=== PATIENT | female | born 1995 | race Caucasian/White ===

== ENCOUNTER → 2017-11-15 09:31 | Outpatient (CLI) | payer MEDICAID, SELFPAY ==
[2017-11-15 10:46] LABS: Hematocrit 42.8 % (37-47); Hemoglobin 14.5 g/dl (12.0-15.0); Mean Corp Hgb Conc 33.9 g/gl (32-36); Mean Corpuscular Hgb 30.1 pg (27.0-32.0); Mean Corpuscular Volume 88.8 fL (81-99); Mean Platelet Vol. 9.9 fl (6.2-12.0); Platelet Count 306 K/mm3 (150-450); RBC Distribution Width CV 13.6 % (11.6-14.6); RBC Distribution Width SD 43.8 fl (35.1-43.9); Red Blood Count 4.82 M/mm3 (4.2-5.4); White Blood Count 8.1 K/mm3 (4.4-11.0)
[2017-11-15 10:47] LABS: Scan Indicated on CBC? Y/N NO
[2017-11-15 11:22] LABS: hCG Titer Quant., Serum 69 mIU/mL (<9 non-preg)
[2017-11-16 14:38] LABS: ANTINUCLEAR ANTIBODIES DIRECT Negative (Negative)
== END ==
PROVIDERS: Visit Provider Obstetrics & Gynecology
DX: O20.0 Threatened abortion (principal); N96 Recurrent pregnancy loss; Z3A.00 Weeks of gestation of pregnancy not specified
CPT/HCPCS: 36415; 81241; 84702; 85027; 86038

== ENCOUNTER → 2018-02-02 15:21 | Outpatient (CLI) | payer MEDICAID, SELFPAY ==
[2018-02-02 17:50] LABS: Chlamydia Trachomatis by PCR Negative (Negative); Neisserai gonorrhoeae by PCR Negative (Negative); Probe Check PASS; Sample Adequacy Control PASS; Specimen Processing Control PASS
[2018-02-08 13:32] LABS: HPV Reflexed? NOT INDICATED
== END ==
PROVIDERS: Visit Provider Obstetrics & Gynecology
DX: Z32.01 Encounter for pregnancy test, result positive (principal); Z12.4 Encounter for screening for malignant neoplasm of cervix; Z11.3 Encounter for screening for infections with a predominantly sexual mode of transmission
CPT/HCPCS: 87491; 87591; 88175; G0145

== ENCOUNTER → 2018-02-16 15:36 | Outpatient (CLI) | payer MEDICAID, SELFPAY ==
[2018-02-16 18:00] LABS: Absolute Lymphocyte Count 1.72 X10^3/ul (0.83-4.51); Absolute Neutrophil Count 5.7 X10^3/uL (2.0-7.7); Basophil# 0.02 X10^3/uL; Basophil% 0.2 % (0-1); Eosinophil# 0.06 X10^3/uL; Eosinophils% 0.7 % (0-5); Hematocrit 41.3 % (37-47); Hemoglobin 13.7 g/dl (12.0-15.0); Lymphocyte # 1.72 X10^3/ul (4.0); Lymphocyte % 20.4 % (19-41); Mean Corp Hgb Conc 33.2 g/gl (32-36); Mean Corpuscular Hgb 29.4 pg (27.0-32.0); Mean Corpuscular Volume 88.6 fL (81-99); Mean Platelet Vol. 9.9 fl (6.2-12.0); Monocyte# 0.92 X10^3/uL; Monocyte% 10.9 % (0-10); Neutrophil # 5.69 X10^3/uL (2.7-7.7); Neutrophil % 67.4 % (47-70); Platelet Count 316 K/mm3 (150-450); RBC Distribution Width CV 13.2 % (11.6-14.6); RBC Distribution Width SD 42.3 fl (35.1-43.9); Red Blood Count 4.66 M/mm3 (4.2-5.4); White Blood Count 8.4 K/mm3 (4.4-11.0)
[2018-02-16 18:05] LABS: Color, Urine Straw (Yellow); Glucose, Dipstick Normal (Normal); Ketone-Dipstick Negative (Negative); Leukocyte Esterase-Dipstick Negative /ul (Negative); Nitrite-Dipstick Negative (Negative); Occult Blood-Urine Negative /ul (Negative); Protein-Dipstick Negative (Negative); Urine Bilirubin Dipstick Negative (Negative); Urine Clarity Clear (Clear); Urine Urobilinogen Normal (Normal)
[2018-02-16 18:18] LABS: Thyroid Stim Hormone (TSH) 0.64 uIU/mL (0.358-3.74)
[2018-02-16 18:21] LABS: Amphetamine Urine VISTA NEGATIVE (<1000 ng/mL); Barbiturate Urine VISTA NEGATIVE (< 200 ng/mL); Benzodiazepine Urine VISTA NEGATIVE (< 200 ng/mL); Cocaine Urine VISTA NEGATIVE (< 300 ng/mL); Ecstacy Urine VISTA NEGATIVE (< 500 ng/mL); Methadone Urine VISTA NEGATIVE (< 300 ng/mL); PCP Urine VISTA NEGATIVE (< 25 ng/mL); THC Urine VISTA NEGATIVE (< 50 ng/mL); Vista UDS pH Range 6
[2018-02-16 18:30] LABS: COTININE Drug Screen Positive (<200 ng/mL)
[2018-02-16 18:33] LABS: POSITIVE COUNT NO; POSITIVE DIFFERENTIAL NO; POSITIVE MORPHOLOGY NO
[2018-02-16 18:51] LABS: HIV - WCH Non-Reactive (Nonreactive); Rubella IgG 29.4 IU/mL
[2018-02-18 03:32] LABS: Prenatal RPR NONREACTIVE (NONREACTIVE)
[2018-02-19 20:15] LABS: HEPATITIS B SURFACE AG Negative (Negative); Hep C Antibodies <0.1 s/co ratio (0.0-0.9); V-Zoster IgG (Immunity) 446 index (Immune >165)
== END ==
PROVIDERS: Visit Provider Obstetrics & Gynecology
DX: Z34.81 Encounter for supervision of other normal pregnancy, first trimester (principal)
CPT/HCPCS: 36415; 80307; 81002; 84443; 85025; 86703; 86762; 86787; 86803; 87340

== ENCOUNTER → 2018-07-05 | Outpatient (CLI) | payer MEDICAID, SELFPAY ==
[2018-07-05 15:51] LABS: Glucose Challenge Gest 1H 50g 189 mg/dL (70-140)
[2018-07-05 15:55] LABS: Hematocrit 33.6 % (37-47); Hemoglobin 11.2 g/dl (12.0-15.0); Mean Corp Hgb Conc 33.3 g/gl (32-36); Mean Corpuscular Hgb 29.6 pg (27.0-32.0); Mean Corpuscular Volume 88.7 fL (81-99); Mean Platelet Vol. 9.7 fl (6.2-12.0); Platelet Count 282 K/mm3 (150-450); RBC Distribution Width CV 13.1 % (11.6-14.6); RBC Distribution Width SD 42.5 fl (35.1-43.9); Red Blood Count 3.79 M/mm3 (4.2-5.4); White Blood Count 9.8 K/mm3 (4.4-11.0)
[2018-07-05 15:57] LABS: Scan Indicated on CBC? Y/N NO
== END | disposition home or self-care (01) ==
LOC: WOBLAB 14:27
PROVIDERS: Visit Provider Obstetrics & Gynecology
DX: Z34.83 Encounter for supervision of other normal pregnancy, third trimester (principal)
CPT/HCPCS: 36415; 82950; 85027; 86850

== ENCOUNTER → 2018-09-02 | Outpatient (CLI) | payer MEDICAID, SELFPAY | END | disposition home or self-care (01) | LOC: LABSPEC 16:38 | PROVIDERS: Visit Provider Obstetrics & Gynecology | DX: Z36.85 Encounter for antenatal screening for Streptococcus B (principal) | CPT/HCPCS: 87081 ==

== ENCOUNTER 2018-09-23 19:10 | Inpatient (IN) | payer MEDICAID, SELFPAY ==
[2018-09-23] MEDS: Lactated Ringers 1,000 ML 50 ML IV (19:40)
[2018-09-23 19:55] LABS: Absolute Lymphocyte Count 1.22 X10^3/uL (0.83-4.51); Absolute Neutrophil Count 5.3 X10^3/uL (2.0-7.7); Basophil# 0.03 X10^3/uL; Basophil% 0.4 % (0-1); Eosinophil# 0.05 X10^3/uL; Eosinophils% 0.7 % (0-5); Hematocrit 35.9 % (37-47); Hemoglobin 11.8 g/dL (12.0-15.0); Lymphocyte # 1.22 X10^3/ul (4.0); Mean Corp Hgb Conc 32.9 g/dL (32-36); Mean Corpuscular Hgb 29.4 pg (27.0-32.0); Mean Corpuscular Volume 89.5 fL (81-99); Mean Platelet Vol. 9.8 fl (6.2-12.0); Monocyte# 0.97 X10^3/uL; Monocyte% 12.7 % (0-10); NRBC Flagged by Analyzer 0 % (0-5); Neutrophil # 5.25 X10^3/uL (2.7-7.7); Neutrophil % 68.8 % (47-70); Platelet Count 247 K/mm3 (150-450); RBC Distribution Width CV 15.1 % (11.6-14.6); RBC Distribution Width SD 49.6 fl (35.1-43.9); Red Blood Count 4.01 M/mm3 (4.2-5.4); White Blood Count 7.6 K/mm3 (4.4-11.0)
[2018-09-23 20:09] VITALS: BMI 31.4
[2018-09-23 20:11] LABS: Bedside Glucose 124 mg/dL (70-110)
[2018-09-23 21:01] LABS: Bedside Glucose 119 mg/dL (70-110)
--- NOTE | 2018-09-23 21:01 | PCM.HP.OB ---
- Problem List (1) 39 weeks gestation of Status: Acute (2) Gestational diabetes mellitus Status: Acute Qualifiers: Gestational diabetes mellitus control: oral hypoglycemic-controlled Trimester: third trimester Qualified Code(s): O24.415 - Gestational diabetes mellitus in , controlled by oral hypoglycemic drugs History Date of Admission: 09/23/18 Final GUILLERMINA: 09/25/18 Final GUILLERMINA Source: US <20 weeks Gestational age: 39 Weeks and 6 Days History of this : This is a 23 year-old, G [6], P [1], at 39 5/7 weeks gestational age with history of gestational diabetes presenting for scheduled induction of labor. Medical History: Medical History (Last Updated 09/23/18 @ 21:05 by Alva Payne MD) Anxiety F41.9 Depression F32.9 Surgical History: Surgical History (Last Updated 09/23/18 @ 21:06 by Alva Payne MD) History of carpal tunnel release Z98.890 left Allergies No Known Allergies Allergy (Verified 09/23/18 20:10) Home Medications: Home Medications 47/Iron/Folate 1/Dha [Pnv-Dha Softgel] 1 tab PO DAILY 12/11/14 glyBURIDE [Micronase] 2.5 mg PO QHS 12/11/14 Smoking Status: Current every day smoker Alcohol: None Number of Fetus(es): 1 NST - FHR Rate Baby A Baseline: 135 Variability:: Moderate Accelerations:: 15 x 15 Decelerations:: None NST Reactive:: Yes FHR Category:: Category I Uterine Activity:: 02/17 History Past Pregnancies: Past Pregnancies Delivery Date Name GA/Weeks Outcome Route Weight Gender Labor Length Anesthesia Delivery Location Provider FOB Labs: Mom's Problem List Problem Status Onset Code 39 weeks gestation of Acute Z3A.39 Gestational diabetes mellitus Acute O24.419 Mom's Labs & Results 09/23/18 09/23/18 09/23/18 19:40 19:40 19:54 WBC 7.6 RBC 4.01 L Hgb 11.8 L Hct 35.9 L MCV 89.5 MCH 29.4 MCHC 32.9 RDW Std Deviation 49.6 H RDW Coeff of Mitchel 15.1 H Plt Count 247 MPV 9.8 Immature Gran % (Auto) 1.400 H Neut % (Auto) 68.8 Lymph % (Auto) 16.0 L [place] % (Auto) 12.7 H Eos % (Auto) 0.7 Baso % (Auto) 0.4 Absolute Neuts (auto) 5.3 Absolute Lymphs (auto) 1.22 Nucleated RBC % 0 POC Glucose 124 H Blood Type O NEGATIVE Antibody Screen NEGATIVE 09/23/18 20:54 WBC RBC Hgb Hct MCV MCH MCHC RDW Std Deviation RDW Coeff of Mitchel Plt Count MPV Immature Gran % (Auto) Neut % (Auto) Lymph % (Auto) [place] % (Auto) Eos % (Auto) Baso % (Auto) Absolute Neuts (auto) Absolute Lymphs (auto) Nucleated RBC % POC Glucose 119 H Blood Type Antibody Screen Course Did the patient receive Yes care? Labs Blood Type: O RH: NEGATIVE RPR/VDRL/Syphilis Nonreactive Rubella status Immune HbSAg Negative Date Done: 02/16/18 Chlamydia Negative Gonorrhea Negative HIV/AIDS Non-Reactive Group B Strep: Negative Current Obstetrical History Gestational Diabetes Yes: on glyburide Incompetent Cervix No Infertility No IUGR No Macrosomia No Hypertension/Pre-eclampsia No Placenta Previa/Abruption No PTL/PROM No Uterine anomaly No Oligohydramnios No Polyhydramnios No Multiple gestation No Past Medical History Asthma No Diabetes No Hypertension No Heart disease No Mitral valve prolapse No Neurologic/Seizure disorder/ No Migraines Kidney disease No Liver disease No Varicosities No Clotting disorders/Hx of DVT No Thyroid Dysfunction No Other medical diseases No Psychiatric disorders Yes: depression and anxiety Major trauma No Abnormal PAP smear Yes: treated for trich on 09/13/2018 took full treatment Sleep apnea No Mammogram in the last 2 years No Enter DETAILS of medical did take prometrium early in the d/t history frequent miscarriages Medications Taken During Dose/Freq.: [glyburide] 2.5mg at hs Last Date/Time of Medication 09/22/2018 @ 2200 Taken: [glyburide] Reason for taking medication [ gdm glyburide] Social History Marital Status: SINGLE Alleged father darrell [place] Hx Smoking Yes Smoking Status Current every day smoker Expected Delivery Method: Spontaneous Vaginal Review of Systems Gynecological: Reports: - - occasional contractions, + FM, no leaking of fluid or vaginal bleeding Physical Exam Vitals: AVSS General: Alert, Oriented x3, Cooperative, No apparent distress HEENT: Atraumatic, Normocephalic Cardiovascular: Regular Rhythm Lungs: Normal air movement Abdomen: Soft, Non Tender, Non-Distended, Gravid Extremities:: No edema Neurological: Neuro grossly intact TRANSFORMER TESTER: Normal external genitalia Estimated gestational size: Appropriate for gestational size Presentation: Cephalic Cervix Dilation (cm): 1.5 Station: -3 Effacement (%): 50 Assessment/Plan All Active Problems (Last Updated 09/23/18 @ 21:05 by Alva Payne MD) Physical exam, pre-employment (Acute) 39 weeks gestation of (Acute) Gestational diabetes mellitus (Acute) This is a 23 year-old, G [6], P [1], at 39 5/7 weeks gestational age. -GDMA2, will continue glyburide. FS glucose 124 and 119. Will monitor per protocol. -Misoprostol for cervical ripening -Consents reviewed and patient given opportunity to ask questions. Questions answered to her satisfaction.
[2018-09-23] MEDS: 0.9% Saline Lock 10 ML Syringe IV ×2 (21:32→23:42)
[2018-09-23] MEDS: glyBURIDE 2.5 MG Tablet PO (21:38)
[2018-09-23 22:05] LABS: Bedside Glucose 107 mg/dL (70-110)
[2018-09-23 23:11] LABS: Bedside Glucose 98 mg/dL (70-110)
[2018-09-24] MEDS: Acetaminophen 325 MG Tablet PO ×2 (03:13→08:49)
[2018-09-24 03:16] LABS: Bedside Glucose 82 mg/dL (70-110)
[2018-09-24 07:21] LABS: Bedside Glucose 79 mg/dL (70-110)
--- NOTE | 2018-09-24 08:00 | PCM.PN.BLA ---
Progress Note LABOR PROGRESS NOTE No complaints. No issues overnight. Feels contractions more often. AVSS GEN - NAD, AAO x 3 SVE deferred, recent exam per RN T Dennis 2.5/75/-3 TOCO 1-3/10 min FHR 130, moderate variability, + accelerations, no decelerations am FS 79 A/P: 23yo admitted at 39 wga for IOL, GDMA2 -FS controlled this am -Plan for pitocin later this morning -Pain management per patient request
[2018-09-24 10:06] LABS: Bedside Glucose 130 mg/dL (70-110)
[2018-09-24] MEDS: Oxytocin 30 units/NS 500 ml 30 UNITS/500 ML IV.SOLN IV (10:57)
[2018-09-24] MEDS: Lactated Ringers 1,000 ML 50 ML IV ×2 (11:05→14:53)
[2018-09-24] MEDS: fentaNYL-bupivacaine (epidural) 100 ML BAG EPIDURAL ×2 (11:32→16:08)
--- NOTE | 2018-09-24 12:01 | PCM.PN.BLA ---
Progress Note LABOR PROGRESS NOTE Comfortable with epidural. AVSS GEN - NAD, AAO x 3 FHR 140, moderate variability, + variable decelerations TOCO 3/10 min SVE 5.5/75/-2 A/P: 23yo @ 39 6/7wga in active labor, Cat II FHR -GDMA2 - FS q1h now -Patient declines amniotomy -Will continue pitocin as tolerated by mother and fetus
[2018-09-24 13:56] LABS: Bedside Glucose 85 mg/dL (70-110)
[2018-09-24 15:06] LABS: Bedside Glucose 90 mg/dL (70-110)
[2018-09-24 16:06] LABS: Bedside Glucose 78 mg/dL (70-110)
[2018-09-24 18:00] LABS: Bedside Glucose 70 mg/dL (70-110)
[2018-09-24] MEDS: Oxytocin 30 units/NS 500 ml 30 UNITS/500 ML IV.SOLN 334 UNITS IV (18:46)
--- NOTE | 2018-09-24 19:07 | OP.PCM_ITS ---
Problem List (1) 39 weeks gestation of Status: Acute (2) Gestational diabetes mellitus Status: Acute Qualifiers: Gestational diabetes mellitus control: oral hypoglycemic-controlled Trimester: third trimester Qualified Code(s): O24.415 - Gestational diabetes mellitus in , controlled by oral hypoglycemic drugs Vaginal Delivery Maternal Presentation: Medically Indicated Induction Method of Induction: Pitocin, Cytotec Amniotic Membrane Rupture Type: Artificial Rupture of Membrane time: 09/24/18 1303h Amniotic Fluid Description: Moderate meconium Final GUILLERMINA: 09/25/18 Final GUILLERMINA Source: US <20 weeks Gestational age: 39 Weeks and 6 Days [place] doctor who attended delivery (if requested by OB): Yvette Sinclair Date of Procedure: 09/24/18 Pre-Operative Diagnosis: 39 6/7wga, GDMA2 Post-Operative Diagnosis: 39 6/7wga, GDMA2 Surgery/ Procedure Performed: Spontaneous Vaginal Delivery Anesthesiologist: Corina Ng Type of Anesthesia: Epidural Description of Procedure: Patient was fully dilated and +3 station. Her heart rate was category 2 with moderate variability and overall reassuring. Patient pushed to deliver infant head and DANIELA. Infant mouth and nares were suctioned at the perineum. The infant shoulders delivered with ease revealing a vigorous female. The infant was placed on maternal abdomen further attended by nursery personnel. The cord was doubly clamped and cut at approximately 3 minutes of life. Cord gases were obtained. The placenta delivered spontaneously and appeared intact on inspection. A second-degree perineal laceration with vaginal extension was repaired using 3- 0 Vicryl Rapide. There was good hemostasis. Sponge, needle counts were correct x2. Presentation: Vertex Placental Delivery Description: Spontaneous Placenta Disposition: [facility] Cord Vessel Description: 3 Vessels Nuchal Cord Compression: Without compression Cord Gases drawn per routine: ABG, VBG Cord Entanglement: None Drain: Hurd to straight drain Estimated Blood Loss: 400 ml A gender: Female (1 minute): 9 (5 minute): 9 Episiotomy Description: None Laceration: Midline, Perineal Extension/lac, Vaginal Extension/lac, 2nd degree Medications given after delivery: IV Pitocin Complications: None
[2018-09-24] MEDS: Oxytocin 30 units/NS 500 ml 30 UNITS/500 ML IV.SOLN 167 UNITS IV (19:16)
[2018-09-24] MEDS: Acetaminophen 500 MG Tablet 1000 MG PO (19:53)
[2018-09-24 20:11] LABS: Bedside Glucose 84 mg/dL (70-110)
[2018-09-24 23:54] VITALS: BP 98/56; PULSE 73; RESP 18; TEMP 36.1; O2SAT 97
--- NOTE | 2018-09-25 | NURSING ---
Report given to Thelma QUEZADA.
[2018-09-25] MEDS: Ibuprofen 600 MG Tablet PO ×3 (00:28→18:24)
[2018-09-25 04:00] VITALS: BP 101/48; PULSE 80; RESP 16; TEMP 36.1
[2018-09-25] MEDS: Acetaminophen 500 MG Tablet 1000 MG PO ×3 (04:44→22:48)
[2018-09-25 06:41] LABS: Bedside Glucose 131 mg/dL (70-110)
--- NOTE | 2018-09-25 06:56 | NURSING ---
0625 FBS POC 131. Pt states she ate 2 packs of Cynthia Doone cookies at 0400.
[2018-09-25 09:00] VITALS: BP 114/62; PULSE 70; RESP 16; TEMP 36
[2018-09-25] MEDS: Prenatal Vits Tablet 1 TABLET PO (09:14)
--- NOTE | 2018-09-25 09:57 | PN.OBGYN_ITS ---
Patient Problems: Active and Suspected Problems (Last Updated 09/23/18 @ 21:05 by Alva Mendoza MD) 39 weeks gestation of (Acute) Gestational diabetes mellitus (Acute) Subjective: No issues overnight. She has some cramping with nursing, but otherwise denies pain. She is out of bed. Infant nursing well. Denies heavy lochia. Objective: avss - Physical Exam General: Alert, Oriented x3, Cooperative HEENT: Atraumatic, Normocephalic Lungs: Clear to auscultation, Normal air movement Cardiovascular: Regular rate, Regular Rhythm Abdomen: Non Tender, Non-Distended, - - fundus firm and nontender Extremities: No edema, No Calf Tenderness Neurological: Neuro grossly intact Psych/Mental Status: Normal Affect, Appropriate, Alert and oriented to time, place, person, mood and affect Vital Signs Temp Pulse Resp BP Pulse Ox 96.8 F L 70 16 114/62 97 09/25/18 09:00 09/25/18 09:00 09/25/18 09:00 09/25/18 09:00 09/24/18 23:54 Oxygen Delivery Method Room Air Weight: 91 kg Body Mass Index (BMI) 31.4 Intake and Output for Last 24 Hours 09/23/18 09/24/18 09/25/18 23:59 23:59 23:59 Intake Total 5569 / 5569 Output Total 2049 / 2049 800 / 800 Balance 3519 / 3519 -800 / -800 POC Glucose 09/25/18 09/24/18 09/24/18 06:31 19:51 17:56 POC Glucose 131 H 84 70 09/24/18 09/24/18 09/24/18 15:59 14:55 13:21 POC Glucose 78 90 85 09/24/18 09:45 POC Glucose 130 H Medical Necessity - Tobacco Use Smoking Status: Current every day smoker Assessment/Plan All Active Problems (Last Updated 09/23/18 @ 21:05 by Alva Payne MD) Physical exam, pre-employment (Acute) 39 weeks gestation of (Acute) Gestational diabetes mellitus (Acute)
[2018-09-25 12:50] VITALS: BP 97/59; PULSE 70; RESP 16; TEMP 36
[2018-09-25 16:40] VITALS: BP 106/49; PULSE 72; RESP 14; TEMP 36
[2018-09-25 19:40] VITALS: BP 115/57; PULSE 97; RESP 18; TEMP 36; O2SAT 98
[2018-09-26 02:39] VITALS: BP 129/53; PULSE 63; RESP 18; TEMP 36.1; O2SAT 99
[2018-09-26] MEDS: Ibuprofen 600 MG Tablet PO ×2 (02:46→11:15)
--- NOTE | 2018-09-26 06:16 | PCM.PN.OB ---
Patient Problems: Active and Suspected Problems (Last Updated 09/23/18 @ 21:05 by Alva Payne MD) 39 weeks gestation of (Acute) Gestational diabetes mellitus (Acute) Subjective: No issues overnight. Doing well. Objective: AVSS - Physical Exam General: Alert, Oriented x3, Cooperative, No apparent distress HEENT: Atraumatic, Normocephalic Lungs: Clear to auscultation, Normal air movement Cardiovascular: Regular rate, Regular Rhythm, Normal S1, Normal S2 Abdomen: Soft, Non Tender, Non-Distended, - - Fundus firm and nontender Extremities: No edema, No Calf Tenderness Neurological: Neuro grossly intact Psych/Mental Status: Normal Affect, Appropriate, Alert and oriented to time, place, person, mood and affect Vital Signs Temp Pulse Resp BP Pulse Ox 96.9 F L 63 18 129/53 H 99 09/26/18 02:39 09/26/18 02:39 09/26/18 02:39 09/26/18 02:39 09/26/18 02:39 Oxygen Delivery Method Room Air Weight: 91 kg Body Mass Index (BMI) 31.4 Intake and Output for Last 24 Hours 09/24/18 09/25/18 09/26/18 23:59 23:59 23:59 Intake Total 5569 / 5569 Output Total 2049 / 2049 800 / 800 Balance 3519 / 3519 -800 / -800 POC Glucose 09/25/18 06:31 POC Glucose 131 H Medical Necessity - Tobacco Use Smoking Status: Current every day smoker Assessment/Plan All Active Problems (Last Updated 09/23/18 @ 21:05 by Alva Payne MD) Physical exam, pre-employment (Acute) 39 weeks gestation of (Acute) Gestational diabetes mellitus (Acute) This is a 23 year-old, G [6], P [2] PPD#2 s/p doing well. -Rh negative, infant also Rh negative -Routine care -Plan for d/c home today
--- NOTE | 2018-09-26 06:20 | DCINST_ITS ---
Discharge Diet: No Restrictions Discharge Activity: Return to Normal Activity, May Shower, May Take a Tub Bath May resume sexual activity in: 4-6 weeks Lifting Restrictions: 10-20 lb Suture Line Care: Avoid Pulling/Pushing Cleanse incision/area with: Soap & Water Additional Instructions: If you experience any of the following, contact your healthcare provider. * Bleeding that soaks a pad every hour for 2 hours * Fever 100.4 or higher * Unrelieved incision or abdominal pain * Swelling, redness, discharge or bleeding from your incision or episiotomy site * Your incision begins to separate * Problems urinating (including inability to urinate or burning while urinating). * Visual changes * Severe headache * Flu-like symptoms * Pain or redness in one of both of your breasts * Pain, warmth, tenderness or swelling in your legs, especially the calf area * Frequent nausea and vomiting * Symptoms of depression or anxiety If you experience any of the following, call 911 or go to the nearest Emergency Room. * Chest pain * Problems breathing * Seizure activity * Partial or complete paralysis of a body part, slurred speech, weakness or drooping of the face, or a sudden inability to walk or hold your balance Allergies/Adverse Reactions: Allergies No Known Allergies Allergy (Verified 09/23/18 20:10) Medications to take at Discharge 47/Iron/Folate 1/Dha [Pnv-Dha Softgel] 1 tab PO DAILY 12/11/14 Ibuprofen [Motrin] 600 mg PO Q8H PRN #30 tab 09/26/18 Senna/Docusate Sodium [Senokot-S] 1 - 2 tab PO DAILY PRN PRN #60 tab 09/26/18 The following prescriptions were given: Ibuprofen [Motrin] 600 mg PO Q8H PRN #30 tab PRN Reason: Pain Transmission Status: Pending to [facility] Senna/Docusate Sodium [Senokot-S] 1 - 2 tab PO DAILY PRN PRN #60 tab PRN Reason: Constipation Transmission Status: Pending to [facility] Please Follow Up With: Cris Mcmahon MD When: 6 weeks Primary Care Physician: Care Physician,No Primary [Primary Care Provider] - Test Results: Test results from this visit will be discussed in further detail at your follow- up appointment, if applicable.
--- NOTE | 2018-09-26 06:20 | PCM.DCVAG ---
Discharge Diet: No Restrictions Discharge Activity: Return to Normal Activity, May Shower, May Take a Tub Bath May resume sexual activity in: 4-6 weeks Lifting Restrictions: 10-20 lb Suture Line Care: Avoid Pulling/Pushing Cleanse incision/area with: Soap & Water Additional Instructions: If you experience any of the following, contact your healthcare provider. Bleeding that soaks a pad every hour for 2 hours Fever 100.4 or higher Unrelieved incision or abdominal pain Swelling, redness, discharge or bleeding from your incision or episiotomy site Your incision begins to separate Problems urinating (including inability to urinate or burning while urinating). Visual changes Severe headache Flu-like symptoms Pain or redness in one of both of your breasts Pain, warmth, tenderness or swelling in your legs, especially the calf area Frequent nausea and vomiting Symptoms of depression or anxiety If you experience any of the following, call 911 or go to the nearest Emergency Room. Chest pain Problems breathing Seizure activity Partial or complete paralysis of a body part, slurred speech, weakness or drooping of the face, or a sudden inability to walk or hold your balance Allergies/Adverse Reactions: Allergies No Known Allergies Allergy (Verified 09/23/18 20:10) Medications to take at Discharge 47/Iron/Folate 1/Dha [Pnv-Dha Softgel] 1 tab PO DAILY 12/11/14 Ibuprofen [Motrin] 600 mg PO Q8H PRN #30 tab 09/26/18 Senna/Docusate Sodium [Senokot-S] 1 - 2 tab PO DAILY PRN PRN #60 tab 09/26/18 The following prescriptions were given: Ibuprofen [Motrin] 600 mg PO Q8H PRN #30 tab PRN Reason: Pain Transmission Status: Pending to [facility] Senna/Docusate Sodium [Senokot-S] 1 - 2 tab PO DAILY PRN PRN #60 tab PRN Reason: Constipation Transmission Status: Pending to [facility] Please Follow Up With: Cris Mcmahon MD When: 6 weeks Primary Care Physician: Care Physician,No Primary [Primary Care Provider] - Test Results: Test results from this visit will be discussed in further detail at your follow-up appointment, if applicable.
[2018-09-26 06:31] LABS: Bedside Glucose 82 mg/dL (70-110)
[2018-09-26] MEDS: Acetaminophen 325 MG Tablet PO (06:54)
[2018-09-26 08:25] VITALS: BP 107/59; PULSE 66; RESP 18; TEMP 36.6
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
[2018-09-26] MEDS: Prenatal Vits Tablet 1 TABLET PO (11:16)
[2018-09-26 15:00] VITALS: BP 127/82; PULSE 81; RESP 18; TEMP 36.7
== END 2018-09-26 16:05 | disposition home or self-care (01) | DRG 560 ==
PROVIDERS: Admitting Provider Obstetrics & Gynecology; Visit Provider Obstetrics & Gynecology
DX: O24.425 Gestational diabetes mellitus in childbirth, controlled by oral hypoglycemic drugs (principal); O70.1 Second degree perineal laceration during delivery; O77.0 Labor and delivery complicated by meconium in amniotic fluid; O69.1XX0 Labor and delivery complicated by cord around neck, with compression, not applicable or unspecified; Z3A.39 39 weeks gestation of pregnancy; Z37.0 Single live birth; O99.334 Smoking (tobacco) complicating childbirth; F17.200 Nicotine dependence, unspecified, uncomplicated
CPT/HCPCS: 59050; 82962; 85025; 86850; 86900; 86901; 99218; J7120; A4216; G0378

== ENCOUNTER → 2019-06-01 | Outpatient (CLI) | payer MEDICAID, SELFPAY ==
[2019-06-01 22:25] LABS: Chlamydia Trachomatis by PCR Negative (Negative); Neisserai gonorrhoeae by PCR Negative (Negative); Probe Check PASS; Sample Adequacy Control PASS; Specimen Processing Control PASS
== END | disposition home or self-care (01) ==
PROVIDERS: Visit Provider Obstetrics & Gynecology
DX: Z11.3 Encounter for screening for infections with a predominantly sexual mode of transmission (principal)
CPT/HCPCS: 87491; 87591

== ENCOUNTER → 2019-11-14 | Outpatient (CLI) | payer MEDICAID, SELFPAY | END | disposition home or self-care (01) | LOC: LABSPEC 11-15 10:11 | PROVIDERS: Visit Provider Obstetrics & Gynecology | DX: Z12.4 Encounter for screening for malignant neoplasm of cervix (principal) | CPT/HCPCS: 88175; G0145 ==

== ENCOUNTER → 2021-01-14 | Outpatient (CLI) | payer MEDICAID, SELFPAY ==
[2021-01-17 16:15] LABS: HPV Reflexed? NOT INDICATED
== END | disposition home or self-care (01) ==
LOC: LABSPEC 01-15 09:28
PROVIDERS: Visit Provider Obstetrics & Gynecology
DX: Z01.419 Encounter for gynecological examination (general) (routine) without abnormal findings (principal)
CPT/HCPCS: 88175; G0145

== ENCOUNTER → 2022-03-05 | Outpatient (CLI) | payer MEDICAID, SELFPAY ==
[2022-03-09 06:07] LABS: Chlamydia By Nucleic Acid AMP Negative (Negative)
[2022-03-09 10:07] LABS: Gonococcus By Nucleic Acid AMP Negative (Negative)
== END | disposition home or self-care (01) ==
LOC: LABSPEC 16:09
PROVIDERS: Referring Provider Obstetrics & Gynecology; Visit Provider Obstetrics & Gynecology
DX: Z34.90 Encounter for supervision of normal pregnancy, unspecified, unspecified trimester (principal)
CPT/HCPCS: 87086; 87491; 87591

== ENCOUNTER → 2022-04-03 | Outpatient (CLI) | payer MEDICAID, SELFPAY ==
[2022-04-03 15:50] LABS: Absolute Lymphocyte Count 1.35 X10^3/uL (0.83-4.51); Absolute Neutrophil Count 5.3 X10^3/uL (2.0-7.7); Basophil# 0.03 X10^3/uL; Basophil% 0.4 % (0-1); Eosinophil# 0.13 X10^3/uL; Eosinophils% 1.7 % (0-5); Hematocrit 37.6 % (37-47); Hemoglobin 12.8 g/dL (12.0-15.0); Lymphocyte # 1.35 X10^3/ul (0.83-4.51); Lymphocyte % 17.5 % (19-41); Mean Corpuscular Volume 88.1 fL (81-99); Mean Platelet Vol. 9.4 fl (6.2-12.0); Monocyte# 0.83 X10^3/uL; Monocyte% 10.8 % (0-10); NRBC Flagged by Analyzer 0 % (0-5); Neutrophil # 5.33 X10^3/uL (2.7-7.7); Neutrophil % 69.2 % (47-70); Platelet Count 328 K/mm3 (150-450); RBC Distribution Width CV 12.9 % (11.6-14.6); RBC Distribution Width SD 41.8 fl (35.1-43.9); Red Blood Count 4.27 M/mm3 (4.2-5.4); White Blood Count 7.7 K/mm3 (4.4-11.0)
[2022-04-03 15:58] LABS: NATERA MAILED SPECIMEN
[2022-04-03 16:33] LABS: HIV - WCH Non-Reactive (Nonreactive); Hepatitis B Surface Antigen Non-Reactive (Nonreactive); Hepatitis C Antibody Non-Reactive (Nonreactive); Rubella IgG Reactive (Nonreactive); Syphilis Antibodies Non-reactive
== END | disposition home or self-care (01) ==
LOC: LAB 14:53
PROVIDERS: PCP Physician Assistant; Visit Provider Obstetrics & Gynecology
DX: Z34.90 Encounter for supervision of normal pregnancy, unspecified, unspecified trimester (principal)
CPT/HCPCS: 36415; 85025; 86703; 86762; 86780; 86803; 86850; 86900; 86901; 87340

== ENCOUNTER → 2022-04-16 | Outpatient (CLI) | payer MEDICAID, SELFPAY ==
[2022-04-16 13:58] LABS: Glucose Challenge Gest 1H 50g 194 mg/dL (70-140)
== END | disposition home or self-care (01) ==
LOC: LAB 13:07
PROVIDERS: PCP Physician Assistant; Visit Provider Obstetrics & Gynecology
DX: O09.299 Supervision of pregnancy with other poor reproductive or obstetric history, unspecified trimester (principal); Z86.32 Personal history of gestational diabetes
CPT/HCPCS: 36415; 82950

== ENCOUNTER → 2022-05-29 | Outpatient (CLI) | payer MEDICAID, SELFPAY | END | disposition home or self-care (01) | PROVIDERS: PCP Physician Assistant; Referring Provider Registered Nurse; Visit Provider Registered Nurse | DX: Z34.92 Encounter for supervision of normal pregnancy, unspecified, second trimester (principal); Z3A.19 19 weeks gestation of pregnancy | CPT/HCPCS: 36415 ==

== ENCOUNTER → 2022-07-28 | Outpatient (CLI) | payer MEDICAID, SELFPAY ==
[2022-07-28 16:05] LABS: Absolute Lymphocyte Count 1.43 X10^3/uL (0.83-4.51); Absolute Neutrophil Count 7.6 X10^3/uL (2.0-7.7); Basophil# 0.03 X10^3/uL; Basophil% 0.3 % (0-1); Hematocrit 35.9 % (37-47); Hemoglobin 12.1 g/dL (12.0-15.0); Lymphocyte # 1.43 X10^3/ul (0.83-4.51); Lymphocyte % 14.1 % (19-41); Mean Corp Hgb Conc 33.7 g/dL (32-36); Mean Corpuscular Hgb 30.6 pg (27.0-32.0); Mean Corpuscular Volume 90.7 fL (81-99); Mean Platelet Vol. 9.6 fl (6.2-12.0); Monocyte# 0.88 X10^3/uL; Monocyte% 8.7 % (0-10); NRBC Flagged by Analyzer 0 % (0-5); Neutrophil # 7.57 X10^3/uL (2.7-7.7); Neutrophil % 74.7 % (47-70); Platelet Count 312 K/mm3 (150-450); RBC Distribution Width CV 13.7 % (11.6-14.6); RBC Distribution Width SD 45.2 fl (35.1-43.9); Red Blood Count 3.96 M/mm3 (4.2-5.4); White Blood Count 10.1 K/mm3 (4.4-11.0)
[2022-07-28 17:25] LABS: HIV - WCH Non-Reactive (Nonreactive); Syphilis Antibodies Non-reactive
== END | disposition home or self-care (01) ==
LOC: LAB 15:22
PROVIDERS: PCP Physician Assistant; Referring Provider Obstetrics & Gynecology; Visit Provider Obstetrics & Gynecology
DX: O24.414 Gestational diabetes mellitus in pregnancy, insulin controlled (principal); O26.899 Other specified pregnancy related conditions, unspecified trimester; Z67.91 Unspecified blood type, Rh negative; Z3A.27 27 weeks gestation of pregnancy; O26.20 Pregnancy care for patient with recurrent pregnancy loss, unspecified trimester
CPT/HCPCS: 36415; 85025; 86703; 86780; 86850; 86900; 86901

== ENCOUNTER → 2022-09-28 | Outpatient (CLI) | payer MEDICAID, SELFPAY | END | disposition home or self-care (01) | LOC: LABSPEC 16:54 | PROVIDERS: PCP Physician Assistant; Referring Provider Obstetrics & Gynecology; Visit Provider Obstetrics & Gynecology | DX: O09.90 Supervision of high risk pregnancy, unspecified, unspecified trimester (principal); Z3A.00 Weeks of gestation of pregnancy not specified | CPT/HCPCS: 87081 ==

== ENCOUNTER 2022-10-07 07:20 | Inpatient (IN) | payer MEDICAID, SELFPAY ==
[2022-10-07] VITALS (50 sets, daily range): BP systolic 77–125; BP diastolic 43–75; PULSE 58–127; TEMP 36.1–37.2; O2SAT 98–100; BMI 34.4
[2022-10-07] MEDS: Lactated Ringers 1,000 ML 50 ML IV (08:05)
[2022-10-07 08:20] LABS: Absolute Lymphocyte Count 1.43 X10^3/uL (0.83-4.51); Absolute Neutrophil Count 4.9 X10^3/uL (2.0-7.7); Basophil# 0.03 X10^3/uL; Basophil% 0.4 % (0-1); Eosinophil# 0.06 X10^3/uL; Eosinophils% 0.8 % (0-5); Hematocrit 34.2 % (37-47); Lymphocyte # 1.43 X10^3/ul (0.83-4.51); Lymphocyte % 19.4 % (19-41); Mean Corp Hgb Conc 32.2 g/dL (32-36); Mean Corpuscular Hgb 28.8 pg (27.0-32.0); Mean Corpuscular Volume 89.5 fL (81-99); Mean Platelet Vol. 10.7 fl (6.2-12.0); Monocyte# 0.86 X10^3/uL; Monocyte% 11.7 % (0-10); NRBC Flagged by Analyzer 0 % (0-5); Neutrophil # 4.93 X10^3/uL (2.7-7.7); Neutrophil % 66.8 % (47-70); Platelet Count 239 K/mm3 (150-450); Red Blood Count 3.82 M/mm3 (4.2-5.4); White Blood Count 7.4 K/mm3 (4.4-11.0)
[2022-10-07] MEDS: Oxytocin 15 Units/NS 250ml 15 UNITS/250 ML IV.SOLN 2 UNITS IV (08:50)
[2022-10-07 09:06] LABS: Syphilis Antibodies Non-reactive
[2022-10-07 09:11] LABS: Bedside Glucose 138 mg/dL (74-106)
[2022-10-07 09:11] LABS: Bedside Glucose 172 mg/dL (74-106)
--- NOTE | 2022-10-07 09:39 | HP.PCM.OB_ITS ---
HPI - General General Date of Admission: 10/07/22 HPI Narrative LUKAS YARBROUGH, is a 27 y/o @ 38 weeks who presents to L&D for IOL due to uncontrolled DM. Maternal Data Information GUILLERMINA Calculator Estimated Delivery Date Method Current WG Current Estimate 10/21/22 LMP (Certain) 38w 0d Other Estimates 10/22/22 Ultrasound #1 37w 6d PFSH PFSH Medical History (Updated 10/07/22 @ 08:13 by Addie Rivera) Anxiety Depression Gestational diabetes mellitus Polyhydramnios Home Medications multivitamin no.47-iron fum 27 mg-folate no.1 1 mg-dha 300 mg capsule (PNV-DHA) 1 tab PO DAILY 12/11/14 [History Last Taken 09/22/18 22:00] fluoxetine 40 mg capsule (Prozac) 40 mg PO DAILY 02/20/22 [History Last Taken Unknown] metoclopramide HCl 5 mg tablet (Reglan) 5 mg PO .before meals PRN nausea and vomiting #60 tabs 04/03/22 [Rx Last Taken Unknown] insulin degludec 200 unit/mL (3 mL) subcutaneous pen (Tresiba FlexTouch U-200 insulin) 60 unit (0.3 mL) subcut DAILY #9 mL 05/05/22 [Rx Last Taken Unknown] pen needle, diabetic 32 gauge x 5/32 (BD Ultra-Fine Tennille Pen Needle) #100 ea 05/05/22 [Rx Last Taken Unknown] Allergy/AdvReac Type Severity Reaction Status Date / Time No Known Allergies Allergy Verified 10/05/22 14:09 Surgical History (Updated 10/07/22 @ 08:13 by Addie Rivera) History of carpal tunnel release History of surgery Social History adopted: No household members: significant other and children number of children: 2 current occupational status: employed current occupation: [employer] current occupational exposures/hazards: No pets and animals: Yes (Not managing litterbox) pets and animals: cat(s) and dog(s) history of recent travel: No sexually active: Yes Smoking Status: Former smoker alcohol intake: never substance use type: does not use well-balanced diet: daily or most days caffeine: Yes Type: coffee Number of servings: 1 eating out: rarely or never during the past year weight has: remained stable what type of physical activity do you participate in: none arabella/samaritan: None seatbelt use: always do you feel safe at home: Yes additional social history: JUDITH- Ethan Gonzales- [employer] History 7 Elective abortions Hx Para 2 Spontaneous abortions 4 Hx # Term Pregnancies Ectopic pregnancies Hx # Pregnancies Multiple births # of living children 2 Past Pregnancies Del. Date Name GA/Weeks Outcome Route Bth Weight Infant Gen Labor Lgth Anesthesia Del Locatn Provider FOB 12/12/14 Brynlee 40 live - full term 8#8oz Female 12 HR s epidural [facility] Dr.Seal Jw Snyder 09/24/18 Makenna 39 live - full term 8#8oz Female 20 HRs epid ural [facility] Dr. Tayo Gonzales Visit Details Expected Delivery Route/Plan Labor Preferences- labor support person: Clifton WONG labor intervention preferences: none pain management options preferred: hydrotherapy, epi in past cut cord/dad catch: yes : yes PP control planned: discussed possible routes of delivery and associated risks: [] special requests: [] Plans [employer] currently. and finished [employer] Covid status: vaccinated Flu vaccine: vaccinated Tdap vaccine: given Rhogam: yes LARC form signed: [] movement and labor precautions reviewed. Problem list reviewed and updated with the most current plan of care details and appropriate orders placed. Relevant counseling for the gestational age provided. Continue routine care and follow up unless otherwise noted in visit notes/problem list details OB Flowsheet Initial Weight: Not Recorded Date -?-?--?-?-?-?-?-?-?-?-?-?- EGA Weight BP Urine Prot -?-?-?-?-?-?-?-?-?-?-?-?- Glucose FHR FuHt Pres Dilation -?-?-?-?-?-?-?-?-?-?-?-?- Effaced St Visit Note 03/05/22 -?-?-?-?-?-?-?-?-?-?-?-?- 7w 1d 192 lb 4 oz 105/77 -?-?-?-?-?-?-?-?-?-?-?-?- 140 -?-?-?-?-?-?-?-?-?-?-?-?- JV- single live IUP measuring 7 weeks 0 days and consistent with LMP. desires NIPT. has small MILADY measuring 7 mm 04/03/22 -?-?-?-?-?-?-?-?-?-?-?-?- 11w 2d 190 lb 6 oz 116/76 Nega tive -?-?-?-?-?-?-?-?-?-?-?-?- Negative 175 -?-?-?-?-?-?-?-?-?-?-?-?- JV- pt did her g antonio today but was not able to get to lab in time to have the lab drawn. will try again . still very nauseated. will try reglan. 04/29/22 -?-?-?-?-?-?-?-?-?-?-?-?- 15w 0d 192 lb 8 oz 108/66 Nega tive -?-?-?-?-?-?-?-?-?-?-?-?- Negative 163 -?-?-?-?-?-?-?-?-?-?-?-?- MH-No Vb, crampi ng. Is testing glucose:still high. Sees Dr Patton 05/05. Ref to dietitian. 05/29/22 -?-?-?-?-?-?-?-?-?-?-?-?- 19w 2d 195 lb 2 oz 107/70 Nega tive -?-?-?-?-?-?-?-?-?-?-?-?- Negative 150 -?-?-?-?-?-?-?-?-?-?-?-?- SM- no vb crampi n afp ordered SM- no vb cramping afp order ed 06/25/22 -?-?-?-?-?-?-?-?-?-?-?-?- 23w 1d 201 lb 116/62 Negative -?-?-?-?-?-?-?-?-?-?-?-?- Negative 145 -?-?-?-?-?-?-?-?-?-?-?-?- JV- needs rhogam at 28 weeks. ok to come next at 28 weeks or return at 27 and then again at 28. no lof, vaginal bleeding, or dec fm. 07/28/22 -?-?-?-?-?-?-?-?-?-?-?-?- 27w 6d 208 lb 8 oz 116/71 -?-?-?-?-?-?-?-?-?-?-?-?- 130 -?-?-?-?-?-?-?-?-?-?-?-?- SM- no vb lof go od fm no regular ctx 08/10/22 -?-?-?-?-?-?-?-?-?-?-?-?- 29w 5d 211 lb 6 oz 98/59 Trac e -?-?-?-?-?-?-?-?-?-?--?-?- Negative 145 30 -?-?-?-?-?-?-?-?-?-?-?-?- KW-+FM. no lof/v b/cramping. Tdap today. discussed NSTs and growth USs starting at 32 weeks. on 42 units of insulin and a sliding scale dose. Reports good BS control. KW-+FM. no lof/vb/cramping. Tdap today. discussed NSTs and growth USs starting at 32 weeks-Has BPPs on with MFM. on 42 units of insulin and a sliding scale dose. Reports good BS control. 08/24/22 -?-?-?-?-?-?-?-?-?-?-?-?- 31w 5d 215 lb 107/71 Negative -?-?-?-?-?-?-?-?-?-?-?-?- Negative 145 33 -?-?-?-?-?-?-?-?-?-?-?-?- Sm- no vb of good fm no regu lar ctx BS controlled 08/31/22 -?-?-?-?-?-?-?-?-?-?-?-?- 32w 5d 214 lb 2 oz 115/72 -?-?-?-?-?-?-?-?-?-?-?-?- 135 -?-?-?-?-?-?-?-?-?-?-?-?- KW-+fm, no lof/v b/ctx. LARC done 32 week US shows poly. weekly BPPs with MFM already scheduled. BS controlled 09/07/22 -?-?-?-?-?-?-?-?-?-?-?-?- 33w 5d 215 lb 6 oz 101/63 Nega tive -?-?-?-?-?-?-?-?-?-?-?-?- Negative 140 35 -?-?-?-?-?-?-?-?-?-?-?-?- LC- no vb/ctx/lo f. good fm. growth at 68%, ARMOND 26. BS controlled. 09/14/22 -?-?-?-?-?-?-?-?-?-?-?-?- 34w 5d 217 lb 102/69 Negative -?-?-?-?-?-?-?-?-?-?-?-?- Negative 140 36 -?-?-?-?-?-?-?-?-?-?-?-?- MH-Reactive NST. No Vb, LOF. Notes some off and on cramping/discussed when to call. 09/22/22 -?-?-?-?-?-?-?-?-?-?-?-?- 35w 6d 218 lb 2 oz 104/69 Nega tive -?-?-?-?-?-?-?-?-?-?-?-?- Negative 150 -?-?-?-?-?-?-?-?-?-?-?-?- JV- ARMOND at last bpp was 32. [facility] has plans to continue weekly monitoring. NST today is reactive. PTL precautions discussed. 09/28/22 -?-?-?-?-?-?-?-?-?-?-?-?- 36w 5d 221 lb 6 oz 118/72 Nega tive -?-?-?-?-?-?-?-?-?-?-?-?- Negative 140 -?-?-?-?-?-?-?-?-?-?-?-?- SM- poly and EFW over 95, will discuss with group posisble early IOL due to suspected poorly controlled diabetes- BS are within goal but due to findings, consider delivery 10/05/22 -?-?-?-?-?-?-?-?-?-?-?-?- 37w 5d 219 lb 6 oz 114/75 -?-?-?-?-?-?-?-?-?-?-?-?- -?-?-?-?-?-?-?-?-?-?-?-?- SM plan IOL no v b lof good fm no regular ctx ROS Constitutional Constitutional: Denies change in weight, fatigue, fever(s), headache(s), poor appetite or weakness Eyes Eyes: Denies blurry vision, change in vision, seeing flashes or spots in vision ENT HEENT: Denies dizziness, headache(s), loss taste/smell or sore throat Cardiovascular Cardiovascular: Denies chest pain, dizziness, dyspnea, irregular heart rhythm, leg edema, palpitations, rapid heart rate or vomiting Respiratory/Chest Respiratory/Chest: Denies chest tightness, cough, dyspnea or breast pain Gastrointestinal Gastrointestinal: Denies abdominal pain, anorexia, constipation, cramping, diarrhea, hemorrhoids, vomiting or weight changes Genitourinary Genitourinary: Denies dysuria, flank pain, genital lesions, genital pain, urinary frequency or urinary urgency Musculoskeletal Musculoskeletal: Denies back pain, difficulty walking, joint pain, limited range of motion, muscle cramps or numbness Integumentary Integumentary: Denies lesions or unusual bruising Neurologic Neurologic: Denies abnormal movements, abnormal speech, dizziness, numbness, seizure-like activity or syncope Psychiatric Psychiatric: Denies anxiety, behavioral changes, change in appetite, change in libido, cognitive impairment, confusion, depression, difficulty concentrating, hallucinations or suicidal thoughts Endocrine Endocrinology: Denies excessive sweating, polydipsia or polyuria Hematologic/Lymphatic Hematologic/Lymphatic: Denies easy bleeding, easy bruising or lymphadenopathy Allergic/Immunologic Allergic/Immunologic: Denies itchy eyes, lip swelling, seasonal rhinorrhea, rhinitis, throat swelling, tongue swelling, eczemia, wheezing or asthma Vital Signs Vital Signs Vital Signs: 10/07/22 07:34 10/07/22 07:34 10/07/22 08:50 Temperature Temperature Source Temporal Pulse Rate 85 Blood Pressure 121/68 H BP Systolic 121 BP Diastolic 68 Pulse Ox 10/07/22 09:04 10/07/22 09:04 10/07/22 08:50 Temperature 97.6 F L Temperature Source Pulse Rate 75 Blood Pressure BP Systolic BP Diastolic Pulse Ox 98 Weight Weight: 220 lb Body Mass Index (BMI) 34.4 Physical Exam Const alert, oriented x3, no apparent distress and healthy appearing General Appearance: cooperative; Negative for anxious HEENT normocephalic Face and Sinus: normal facial exam Eyes EOMs intact bilaterally and no scleral icterus General Eye: normal appearance of both eyes Neck full ROM and supple Lymph Lymphatic: no lymphadenopathy noted Chest Chest: abnormal inspection of the chest Resp normal respiratory effort Effort and Inspection: able to speak in complete sentences Cardio regular rate GI soft to palpation and non-tender Inspection: gravid Palpation: soft; Negative for tender external exam normal Amniotic Fluid: ROM+plus Back/Spine no CVA tenderness Extremity normal to inspection, full ROM and no clubbing, cyanosis or edema General Extremity: Negative for calf tenderness or edema Skin Lesions: no lesions Rashes: no rashes Psych mental status grossly normal Labs Labs Labs: Blood Type O NEGATIVE Antibody Screen NEGATIVE Hct 34.2 % (37-47) L Hgb 11.0 g/dL (12.0-15.0) L Syphilis Total Ab Non-reactive VZV IgG Antibody 446 index (Immune >165) Rubella IgG Antibody Reactive (Nonreactive) Hep Bs Antigen Non-Reactive (Nonreactive) Chlamydia DNA ([place]) Negative (Negative) Neisseria gonorrhoeae DNA ([place]) Negative (Negative) HIV 1&2 Antibody Non-Reactive (Nonreactive) Glucose 1 Hr 50 gm 194 mg/dL (70-140) H Group B Strep DNA Negative (Negative) Rhogam given: No Miscellaneous Test Assessment & Plan (1) Polyhydramnios affecting : COMMENT: IOl at 39 wks, at 32 weeks-30cm, on 09/18: 32 cm twice weekly testing until delivery (one is a bpp with mfm) (2) Preexisting diabetes complicating in first trimester, antepartum: COMMENT: IOL @ 39 wks, Endocrine, sees mfm weekly for bpp, weekly nst on wednesday/ with [facility], s/p dietitian referral-on 42 units of insulin and a sliding scale dose IOL 10/07/22 @ 7 am (3) History of multiple miscarriages: COMMENT: 4 miscarriages all prior to 10 weeks. 1 in 2013, 1 in 2017, 2 in 2018. last one with low progesterone noted. (4) Rh negative status during : QUALIFIERS: Trimester: third trimester Qualified Code(s): O26.893 - Other specified related conditions, third trimester; Z67.91 - Unspecified blood type, Rh negative COMMENT: rhogam at 28 weeks- Given 07/28/22 (5) Supervision of high risk , antepartum: COMMENT: [id number], GUILLERMINA 10/21/22, Shaka licona Myla BF Payne normal growth and echo (6) : QUALIFIERS: Weeks of gestation: 36 weeks Qualified Code(s): Z3A.36 - 36 weeks gestation of COMMENT: NIPT low risk, afp neg, declined carrier testing., nl echo & growth PLAN: Plan Patient presents IOL, plan management for with pitocin/AROM. Pain management: plans epidural. GBS negative. Management of any complications: none I have reviewed the [facility] and made any clinically relevant updates.
[2022-10-07 10:14] LABS: Bedside Glucose 116 mg/dL (74-106)
[2022-10-07 11:03] LABS: Bedside Glucose 97 mg/dL (74-106)
[2022-10-07] MEDS: 0.9% Normal Saline Single 100 ML IV.SOLN. INTRA-UTER (12:15)
[2022-10-07 12:16] LABS: Bedside Glucose 85 mg/dL (74-106)
[2022-10-07] MEDS: LACTATED RINGERS 500 ML 999 ML IV ×3 (14:25→23:39)
[2022-10-07] MEDS: fentaNYL-bupivacaine (epidural) 100 ML BAG EPIDURAL ×2 (15:03→20:22)
[2022-10-07] MEDS: Ondansetron 4 MG/2 ML Vial IV (15:32)
[2022-10-07 16:26] LABS: Bedside Glucose 81 mg/dL (74-106)
[2022-10-07 17:29] LABS: Bedside Glucose 83 mg/dL (74-106)
--- NOTE | 2022-10-07 18:10 | PN_ITS ---
Progress Note late entry from 3:30pm: patient is comfortable with epidural and consents to AROM. current tracing: FHT: Moderate variability reactive no decelerations category I tracing [place]: q1- 3 minute Contractions lopez catheter that was placed previously has fallen out and cervix is 4-5 cm with bulging membranes. The effacement is 60% and station is -3. membranes ruptured with a large amount of clear fluid return. station descended to -2. reviewed tracing abnormalities since last note: no change follow up at 6:00 pm: patient comfortable and cervix is 5 -6 cm, station at -1 tracing cat 1 A/P: continue pitocin and q 4 hr glucose until active labor than q 1 hr.
[2022-10-07] MEDS: Lactated Ringers 1,000 ML 200 ML IV ×2 (18:59→23:44)
[2022-10-07 19:37] LABS: Bedside Glucose 65 mg/dL (74-106)
[2022-10-07 19:37] LABS: Bedside Glucose 77 mg/dL (74-106)
[2022-10-07 23:37] LABS: Bedside Glucose 65 mg/dL (74-106)
[2022-10-07 23:37] LABS: Bedside Glucose 94 mg/dL (74-106)
[2022-10-08] VITALS (17 sets, daily range): BP systolic 107–121; BP diastolic 54–80; PULSE 74–108; RESP 16; TEMP 36.3–37.3; O2SAT 99
[2022-10-08 00:43] LABS: Bedside Glucose 95 mg/dL (74-106)
[2022-10-08] MEDS: fentaNYL-bupivacaine (epidural) 100 ML BAG EPIDURAL (00:58)
[2022-10-08] MEDS: Oxytocin 10 UNITS/ML Vial IM (01:38)
[2022-10-08] MEDS: Oxytocin 15 Units/NS 250ml 15 UNITS/250 ML IV.SOLN 83 UNITS IV (01:38)
--- NOTE | 2022-10-08 01:53 | OP.PCM_ITS ---
Assessment & Plan (1) Polyhydramnios affecting : COMMENT: IOl at 39 wks, at 32 weeks-30cm, on 09/18: 32 cm twice weekly testing until delivery (one is a bpp with mfm) (2) Preexisting diabetes complicating in first trimester, antepartum: COMMENT: IOL @ 39 wks, Endocrine, sees mfm weekly for bpp, weekly nst on wednesday/ with [facility], s/p dietitian referral-on 42 units of insulin and a sliding scale dose IOL 10/07/22 @ 7 am (3) History of multiple miscarriages: COMMENT: 4 miscarriages all prior to 10 weeks. 1 in 2013, 1 in 2017, 2 in 2018. last one with low progesterone noted. (4) Rh negative status during : QUALIFIERS: Trimester: third trimester Qualified Code(s): O26.893 - Other specified related conditions, third trimester; Z67.91 - Unspecified blood type, Rh negative COMMENT: rhogam at 28 weeks- Given 07/28/22 (5) Supervision of high risk , antepartum: COMMENT: [id number], GUILLERMINA 10/21/22, Shaka licona Myla BF Payne normal growth and echo (6) : QUALIFIERS: Weeks of gestation: 36 weeks Qualified Code(s): Z3A.36 - 36 weeks gestation of COMMENT: NIPT low risk, afp neg, declined carrier testing., nl echo & growth Maternal Data Information GUILLERMINA Calculator Estimated Delivery Date Method Current WG Current Estimate 10/21/22 LMP (Certain) 38w 1d Other Estimates 10/22/22 Ultrasound #1 38w 0d Final GUILLERMINA: 09/21/22 Gestational age: 38 weeks 1 day Vaginal Delivery Maternal Presentation Maternal Presentation: Medically Indicated Induction Type of Induction: Pitocin, Hurd Bulb and Amniotomy Operative Information Date of Procedure: 10/08/22 Pre-Operative Diagnosis: 27 y/o @ 38 weeks 1 day, uncontrolled gestational DM, polyhydramnios Post-Operative Diagnosis: 27 y/o @ 38 weeks 1 day, uncontrolled gestational DM, polyhydramnios Surgery / Procedure Performed: Spontaneous Vaginal Delivery Type of Anesthesia: Epidural Drain: Hurd to straight drain Estimated Blood Loss: 100cc Findings Description of Procedure: Patient began pushing and delivered the head in the RUDDY presentation. The head was delivered atraumatically. The anterior and posterior shoulders delivered without complication followed by the rest of the and the infant was placed on the maternal abdomen. Delayed cord clamping was employed for approximately 60 seconds. Cord was clamped and cut and gentle traction was applied to the cord and the placenta delivered spontaneously immediately following it was noted to be intact with three-vessel cord. The perineum and vagina were inspected and noted to have a1st degree perineal laceration. This was repaired using a 3-0 vicryl suture. EBL was 100 cc. Patient and infant t olerated delivery well. Presentation: Vertex Amniotic Membrane Rupture Type: Artificial Amniotic Fluid Description: Clear Placental Delivery Description: Spontaneous Placenta Disposition: [facility] Cord Vessel Description: 3 Vessels Cord Entanglement: None Infant A Gender: Male (1 minute): 8 (5 minute): 9 Delayed Cord Clamping: Yes Post Vaginal Delivery Medications Given After Delivery: IV Pitocin and IM Pitocin Episiotomy Description: None Laceration: 1st degree Complication Complications: None Multi Select Codes Urinary/Genital Urinary/Genital CPT Codes: 46653 Vaginal Delivery+ PP Care([facility])
--- NOTE | 2022-10-08 01:56 | DCINST_ITS ---
Discharge Instructions Diet Discharge Diet: No restrictions Activity Discharge Activity: Return to Normal Activity, May Not Drive (while taking narcotic pain medications.) and May Shower May resume sexual activity in: 4-6 weeks Dressing / Incision Call your doctor if your incision/area has: Continuous Slow Oozing, Sudden Increased Bleeding, Increased Pain/ Swelling, Increased Redness and Foul Smelling Discharge Follow Up Care Please Follow Up With: Qian Yanes, DO When: Call [phone] to make an appointment with your doctor in 6 weeks. If you had elevated blood pressure or 4th degree laceration, you will need to be seen in 2 weeks. Test Results: Test results from this visit will be discussed in further detail at your follow- up appointment, if applicable. Discharge Plan Admission Admit Date/Time: 10/07/22 07:20 Attending Provider: Qian Yanes Primary Care Provider: Mattie Ruggiero Discharge Orders/Prescriptions Prescriptions: No Action fluoxetine [Prozac] 40 mg capsule 40 mg PO DAILY metoclopramide HCl [Reglan] 5 mg tablet 5 mg PO .before meals PRN (Reason: nausea and vomiting) Qty: 60 0RF Rx Instructions: administer 30 minutes before meals insulin degludec [Tresiba FlexTouch U-200] 200 unit/mL (3 mL) insulin pen 60 unit subcut DAILY Qty: 9 5RF (DME) pen needle, diabetic [BD Ultra-Fine Tennille Pen Needle] 32 gauge x 5/32 needle See Rx Instructions .ROUTE .MEDSUPPLY Qty: 100 2RF Rx Instructions: daily multivit 72-fvyv-wfltyg 1-dha [PNV-DHA] 1 EACH capsule 1 tab PO DAILY Patient Comments: Referrals / Follow Up: Mattie Ruggiero PA [Primary Care Provider] -
[2022-10-08 04:24] LABS: Bedside Glucose 103 mg/dL (74-106)
[2022-10-08 04:24] LABS: Bedside Glucose 118 mg/dL (74-106)
[2022-10-08] MEDS: 0.9% Saline Lock 10 ML Syringe IV (04:46)
[2022-10-08] MEDS: Acetaminophen 500 MG Tablet 1000 MG PO ×3 (09:16→19:54)
[2022-10-08] MEDS: Prenatal Vits Tablet 1 TABLET PO (10:54)
[2022-10-08] MEDS: Fluoxetine HCl 40 MG CAPSULE PO (10:54)
[2022-10-08] MEDS: Naproxen 500 MG Tablet PO ×2 (14:20→23:33)
[2022-10-09 01:30] VITALS: BP 110/46; PULSE 61; RESP 16; TEMP 36.2
[2022-10-09 06:28] LABS: Bedside Glucose 83 mg/dL (74-106)
--- NOTE | 2022-10-09 07:41 | PN.OBGYN_ITS ---
Subjective Subjective Patient doing well without complaints. Tolerating PO. Ambulating and voiding without difficulty. Feeding well. Denies chest pain, shortness of breath, calf pain/swelling, fevers, chills, lightheadedness. Objective Data Objective Data Vital Signs: Vital Signs Temp Pulse Resp BP Pulse Ox O2 Del Method 97.1 F L 61 16 110/46 L 99 Room Air 10/09/22 01:30 10/09/22 01:30 10/09/22 01:30 10/09/22 01:30 10/08/22 01:03 10/08/22 18:12 Oxygen Delivery Method Room Air Weight: 220 lb Body Mass Index (BMI) 34.4 Intake & Output: Intake and Output for Last 24 Hours 10/07/22 10/08/22 10/09/22 23:59 23:59 23:59 Intake Total 3058.37 / 3058.37 1161.03 / 1161.03 Output Total 1450 / 1450 2019 / 2019 Balance 1608.37 / 1608.37 -858.97 / -858.97 Lab / Micro Data Attestation: I reviewed the patient's lab results. 10/07/22 08:05 Labs: Laboratory Results - last 24 hr 10/08/22 09:10: Screen NEGATIVE, Baby's Blood Type A WEAK RH D, Baby's LAUREN NEGATIVE 10/09/22 06:07: POC Glucose 83 ROS Constitutional Constitutional: Reports systems reviewed and no addt'l complaints, except as documented; Denies anorexia or headache(s) Cardiovascular Cardiovascular: Reports systems reviewed and no addt'l complaints, except as documented; Denies dizziness, dyspnea, nausea or tachypnea Respiratory/Chest Respiratory/Chest: Reports systems reviewed and no addt'l complaints, except as documented; Denies cough, dyspnea, shortness of breath at rest or tachypnea Gastrointestinal Gastrointestinal: Reports systems reviewed and no addt'l complaints, except as documented; Denies abdominal pain, constipation or nausea Genitourinary Genitourinary: Reports systems reviewed and no addt'l complaints, except as documented; Denies burning urination, difficulty urinating, dysuria, urinary frequency or urinary incontinence Musculoskeletal Musculoskeletal: Reports systems reviewed and no addt'l complaints, except as documented Integumentary Integumentary: Reports systems reviewed and no addt'l complaints, except as documented Neurologic Neurologic: Reports systems reviewed and no addt'l complaints, except as documented; Denies abnormal speech, dizziness or headache(s) Psychiatric Psychiatric: Reports systems reviewed and no addt'l complaints, except as d ocumented Endocrine Endocrinology: Reports systems reviewed and no addt'l complaints, except as documented Hematologic/Lymphatic Hematologic/Lymphatic: Reports systems reviewed and no addt'l complaints, except as documented Physical Exam Const alert, oriented x3 and no apparent distress Neck full ROM Resp normal respiratory effort, normal air movement and no retractions Effort and Inspection: able to speak in complete sentences and symmetric chest movement GI soft to palpation Bladder / Kidney Exam: bladder normal to palpation Uterus Palpation: uterus fundus firm Extremity normal to inspection and full ROM Psych mental status grossly normal, thought process normal and cooperative Assessment & Plan (1) Abnormal glucose in , antepartum: COMMENT: failed 1 HT GCT, (2) Supervision of high risk , antepartum: COMMENT: [id number], GUILLERMINA 10/21/22, boy, Makenna Benz normal growth and echo PLAN: s/p PPD # 1 1. routine post delivery care 2. breast feeding- support given 3. rh positive 4. rubella immune 5. Discharge home Charges/Coding Multi Select Codes Urinary/Genital Urinary/Genital CPT Codes: No Charge
--- NOTE | 2022-10-09 07:47 | DCINST_ITS ---
Discharge Instructions Diet Discharge Diet: No restrictions Activity May resume sexual activity in: 4-6 weeks Dressing / Incision Call your doctor if your incision/area has: Continuous Slow Oozing, Sudden Increased Bleeding, Increased Pain/ Swelling, Increased Redness and Foul Smelling Discharge Follow Up Care Please Follow Up With: Qian Yanes DO Test Results: Test results from this visit will be discussed in further detail at your follow- up appointment, if applicable. Discharge Plan Admission Admit Date/Time: 10/07/22 07:20 Attending Provider: Qian Yanes Primary Care Provider: Mattie Ruggiero Discharge Orders/Prescriptions Prescriptions: No Action fluoxetine [Prozac] 40 mg capsule 40 mg PO DAILY metoclopramide HCl [Reglan] 5 mg tablet 5 mg PO .before meals PRN (Reason: nausea and vomiting) Qty: 60 0RF Rx Instructions: administer 30 minutes before meals insulin degludec [Tresiba FlexTouch U-200] 200 unit/mL (3 mL) insulin pen 60 unit subcut DAILY Qty: 9 5RF (DME) pen needle, diabetic [BD Ultra-Fine Tennille Pen Needle] 32 gauge x 5/32 needle See Rx Instructions .ROUTE .MEDSUPPLY Qty: 100 2RF Rx Instructions: daily multivit 57-rfcm-evract 1-dha [PNV-DHA] 1 EACH capsule 1 tab PO DAILY Patient Comments: Referrals / Follow Up: Mattie Ruggiero PA [Primary Care Provider] - Disposition Disposition (needs filled in before D/C Order can be placed): Home, Self Care
[2022-10-09 09:00] VITALS: BP 106/70; PULSE 76; RESP 16; TEMP 36.5; O2SAT 96
[2022-10-09] MEDS: Prenatal Vits Tablet 1 TABLET PO (09:21)
[2022-10-09] MEDS: Fluoxetine HCl 40 MG CAPSULE PO (09:36)
--- NOTE | 2022-10-09 09:58 | CASEMGMT ---
Social Work Assessment Labor and Delivery Unit Patient Address:[address] [place] [id number] Phone number: [phone] Date of Referral: 10/08/22 Time of Referral:? 021 Referred By: Qian Yanes Date of Intervention: ??10/09/22 Time of Intervention:? 0900 Reason for Referral:? Mental Health Sw completed chart review and acknowledges social work consult due to mental health. Sw also notes in maternal chart that she has history of substance use (methamphetamine) and has prior involvement with Children's Services which resulted in the loss of custody of her two other children (temporarially). Sw introduced self to MOB and explained reason for sw involvement. Sw completed psychosocial assessment and MOB did an [place] Depression Scale. History obtained from: medical records and mother of baby (AMI)??? Household composition: Currently residing in the home with MOB is father of baby (CHARLES Long) their other daughter (Makenna. : 09/24/18) and MOB's first daughter (Eugene Snyder, : 12/12/14). Adding the bunch is baby boy. MOB states that parents obtained their own independent housing and they have no housing needs at this time. Patient's parent/guardian status:? MOB states that she and FOB met when they were younger in school. MOB states that they have been off and on for the last 3-5 years. MOB denies any issues or concerns with domestic violence or intimate partner violence. MOB states that FOB is one of her biggest supports. Medical History: AMI is 8, para 2- now 4. MOB states that she had several early miscarriages until it was discovered that her progesterone level is low. MOB delivered baby boy via vaginal delivery at 38 weeks gestation. Baby boy, named Fred Hancock, was born on 10/08/22 weighing 8lb 10oz and his apgars were 8 and 9 at one and five minutes of life respectfully. MOB states that she is breast feeding and it is going well. 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 Financial Status: Both parents are gainfully employed outside of the home. 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 MOB states that she will be able to take off 6-8 weeks for maternity leave. 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 Infant Supplies:?Parents have obtained all necessary items for baby including: car seat, safe sleep space, clothes, diapers, wipes and a breast pump. Childcare/Caregiver(s):? AMI will be the primary caregiver to baby while she is on maternity leave, with help from TRE when he is not at work. MOB states that when both parents are working they have a lot of family members who will be able to watch baby so he does not have to go to daycare. Transportation:??Both parents have their drivers license and reliable transportation. No barriers to transportation at this time. Programs/Agencies Involved: ?AMI is connected to Medicaid for insurance. MOB states that she also plans on looking into getting connected to WIC.v MOB states that she is not connected to counseling supports at this time. ?? Children Services/Legal Issues:?MOB states that when her first daughter was born in 2014 she was removed from her care and placed into temporary custody of her mother due to maternal substance use. MOB states that when her second daughter was born she had completed treatment with [facility] and was sober for 11 months. MOB states that a referral was made to Children Services and when baby was discharged she was put into foster care. MOB states that the next day she had court and the baby was returned to her. AMI states that was a really challenging time and she hopes that her daughter, Makenna, does not learn that she was in foster care following her . MOB states that she has been sober now for over 5 years and has her life together. - No need for Children Services referral at this time. Behavioral Health Issues: ??Mental Health History:??AMI has been diagnosed with anxiety and depression. AMI is prescribed Prozac by her primary care doctor (Dr. Ruggiero- [facility]). MOB states that she does not feel as though she ever experienced baby blues or depression. AMI completed [place] Depression Scale, her score was a 3. Sw provided education and encouraged AMI to get connected to counseling should she struggle during this period. MOB expressed understanding. ? 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 AMI has been sober for 5 years. MOB completed treatment with [facility]. MOB states that TRE is also sober at this time. ? Family History:?MOB denies mental health and substance use history for family. ? Drug Screens: ?No urine screen observed in chart review. ? Family/Social Stressors:?MOB denies current concerns or stressors at this time. Support Systems: AMI identifies her mom, step dad and FOB as her biggest supports. Depression/Shaken Baby/Safe Sleeping:?Sw educated MOB on signs and symptoms of baby blues and depression. MOB states that she is aware of things to be on the look out for. Sw encouraged AMI to have a conversation with TRE on things he can do to help her and support her during this period, especially if she were to struggle with the blues or . MOB expressed understanding. Sw educated MOB on shaken baby prevention and ABCs of safe sleep. MOB expressed understanding. ASSESSMENT:?AMI was talkative and receptive to sw during assessment. MOB observed holding baby and feeding while social work present. MOB open regarding her mental health, substance use and Children's Services history. AMI Nieves was a 3, and was encouraged to get connected to community mental health supports should she notice a change in her symptoms. PLAN:? MOB and baby to be discharged when medically ready. ?No other services requested or indicated. Latesha Worthy, ASPHALT SURFACE HEATER OPERATOR, FARM OPERATIONS MANAGER
[2022-10-09 13:03] VITALS: BP 114/72; PULSE 66; RESP 14; TEMP 36.7; O2SAT 98
== END 2022-10-09 13:15 | disposition home or self-care (01) | DRG 560 ==
PROVIDERS: Admitting Provider Obstetrics & Gynecology; PCP Physician Assistant; Visit Provider Obstetrics & Gynecology
DX: O24.424 Gestational diabetes mellitus in childbirth, insulin controlled (principal); Z37.0 Single live birth; O26.23 Pregnancy care for patient with recurrent pregnancy loss, third trimester; F32.A Depression, unspecified; F41.9 Anxiety disorder, unspecified; O40.3XX0 Polyhydramnios, third trimester, not applicable or unspecified; O99.344 Other mental disorders complicating childbirth; O26.893 Other specified pregnancy related conditions, third trimester; Z67.41 Type O blood, Rh negative; O70.0 First degree perineal laceration during delivery; Z3A.38 38 weeks gestation of pregnancy; Z79.899 Other long term (current) drug therapy; Z87.891 Personal history of nicotine dependence
CPT/HCPCS: 59025; 59050; 76815; 82962; 85025; 85461; 86780; 86850; 86900; 86901; 99221; J7120; A4216; G0378; J2405; J2790

== ENCOUNTER → 2023-12-28 | Outpatient (CLI) | payer MEDICAID, SELFPAY ==
[2024-01-07 13:33] LABS: HPV Reflexed? NOT INDICATED
== END | disposition home or self-care (01) ==
PROVIDERS: PCP Physician Assistant; Referring Provider Nurse Practitioner Women's Health; Visit Provider Nurse Practitioner Women's Health
DX: Z12.4 Encounter for screening for malignant neoplasm of cervix (principal)
CPT/HCPCS: 88175; G0145